=== PATIENT | male | born 1990 | race Caucasian/White ===

== ENCOUNTER 2017-04-09 01:54 | Day surgery (SDC) | payer OTHER ==
[~2017-04-09] VITALS: Ht 175.3 cm; Wt 88.3 kg
[2017-04-09] MEDS ORDERED: NS 1,000 ML IV ONE (03:15)
[2017-04-09] MEDS ORDERED: LIDOCAINE 2% INJ 100 MG/5 ML SDV (FOR ANES.) As Ordered ONE (04:04)
[2017-04-09] MEDS ORDERED: PROPOFOL 200 MG/20 ML VIAL As Ordered ONE (04:04)
[2017-04-09] MEDS ORDERED: MIDAZOLAM INJ 2 MG/2 ML VIAL (J2250) As Ordered ONE (04:06)
[2017-04-09] MEDS ORDERED: fentaNYL 100 MCG/2 ML INJECTION (J3010) As Ordered ONE (05:00)
[2017-04-09] MEDS ORDERED: ONDANSETRON 4MG/2ML VIAL (J2405) As Ordered ONE (05:08)
[2017-04-09] MEDS ORDERED: ROCURONIUM BROMIDE 50 MG/5 ML VIAL As Ordered ONE (05:10)
[2017-04-09] MEDS ORDERED: SUCCINYLCHOLINE 100 MG/5 ML SYRINGE (J0330) As Ordered ONE (05:10)
--- NOTE | 2017-04-09 05:50 | ROOR ---
Patient Name: Guilherme Engel Procedure Date: 04/09/2017 4:02 AM Date of : 1990 Age: 26 Gender: Male Note Status: Finalized Procedure: Upper GI endoscopy Indications: Therapeutic procedure, Foreign body in the esophagus Providers: Carson Ba MD Referring MD: Rufus Munoz Requesting Provider: Medicines: General Anesthesia Complications: No immediate complications. Procedure: Pre-Anesthesia Assessment: - Prior to the procedure, a History and Physical was performed, and patient medications and allergies were reviewed. The patient is competent. The risks and benefits of the procedure and the sedation options and risks were discussed with the patient. All questions were answered and informed consent was obtained. Patient identification and proposed procedure were verified by the physician, the nurse and the anesthesiologist in the procedure room. Mental Status Examination: alert and oriented. Airway Examination: normal oropharyngeal airway and neck mobility. CV Examination: regular rate and rhythm. Prophylactic Antibiotics: The patient does not require prophylactic antibiotics. Prior Anticoagulants: The patient has taken no previous anticoagulant or antiplatelet agents. ASA Grade Assessment: I - A normal, healthy patient. After reviewing the risks and benefits, the patient was deemed in satisfactory condition to undergo the procedure. The anesthesia plan was to use general anesthesia. Immediately prior to administration of medications, the patient was re-assessed for adequacy to receive sedatives. The heart rate, respiratory rate, oxygen saturations, blood pressure, adequacy of pulmonary ventilation, and response to care were monitored throughout the procedure. The physical status of the patient was re-assessed after the procedure. The Endoscope was introduced through the mouth, and advanced to the second part of duodenum. The upper GI endoscopy was accomplished without difficulty. The patient tolerated the procedure well. Findings: Food was found in the distal esophagus. Removal of food was accomplished. Meat was identified filling the distal esophagus. Small fragments were removed with a snare and grasper. The remainder could then be pushed into the stomach. Estimated blood loss: none. The entire examined stomach was normal. The first portion of the duodenum and second portion of the duodenum were normal. Impression: - Food in the distal esophagus. Removal was successful. - Normal stomach. - Normal first portion of the duodenum and second portion of the duodenum. Recommendation: - Discharge patient to home. - Advance diet as tolerated. - Return to my office in 3 weeks. Carson Ba MD 04/09/2017 5:50:24 AM Number of Addenda: 0 Note Initiated On: 04/09/2017 4:02 AM Estimated Blood Loss: Estimated blood loss: none.
[2017-04-09] MEDS ORDERED: ONDANSETRON 4MG/2ML VIAL (J2405) IV PRN (06:00)
[2017-04-09] MEDS ORDERED: LR 1,000 ML IV SCH ×2 (06:00)
[2017-04-09] MEDS ORDERED: ACETAMINOPHEN TAB 650MG DOSE (2X325MG) PO PRN (06:00)
[2017-04-09 06:27] VITALS: BP 150/71
[2017-04-09 07:10] VITALS: BP 126/69
== END 2017-04-09 10:34 | disposition home or self-care (01) ==
LOC: EDBD 01:54 → M ED 03:20 → M OROP 04:15 → M PCU 06:17 → M OROP 10:34
PROVIDERS: ATTEND Surgery
DX: T18.128A Food in esophagus causing other injury, initial encounter (principal); X58.XXXA Exposure to other specified factors, initial encounter; Y92.89 Other specified places as the place of occurrence of the external cause; Z88.0 Allergy status to penicillin; Z88.1 Allergy status to other antibiotic agents
CPT/HCPCS: 43247; 96360; 99284; J0330; J2250; J2405; J3010